=== PATIENT | female | born 1935 | race Caucasian/White ===

== ENCOUNTER → 2016-12-29 | Outpatient (CLI) | payer MEDICARE ==
[~2016-12-29] MED LIST: ASPI-515 PO; ATOR40TA PO; CLOP75TA22 PO; DICL75TA2 PO; DOCU50CA3 PO; METO25TA91 PO; MULT-658 PO; REGADENOSON 0.4 MG/5 ML SYRINGE ONE; ROPI1TAB PO; TICA90TA PO; [UNRECOGNIZED DRUG - OTHER] PO
[2016-12-29 12:38] LABS: BLOOD UREA NITROGEN 25 mg/dL (7-18)
[2016-12-29 12:45] LABS: ASPARTATE AMINO TRANSFERASE 22 U/L (15-37)
== END | disposition home or self-care (01) ==
LOC: CFH 08:12
PROVIDERS: ATTEND Physician Assistant Medical
DX: I25.10 Atherosclerotic heart disease of native coronary artery without angina pectoris (principal); I10 Essential (primary) hypertension
CPT/HCPCS: 36415; 78452; 80053; 80061; 83880; 93017; A9502; J2785

== ENCOUNTER → 2018-09-14 | Outpatient (CLI) | payer MEDICARE ==
[~2018-09-14] MED LIST changes: -CLOP75TA22 PO; +CLOP75TA52 PO; -DICL75TA2 PO; +DICL75TA3 PO; -REGADENOSON 0.4 MG/5 ML SYRINGE ONE
== END | disposition home or self-care (01) ==
LOC: CVU 14:59
PROVIDERS: ATTEND Internal Medicine Cardiovascular Disease
DX: I08.8 Other rheumatic multiple valve diseases (principal); Z95.818 Presence of other cardiac implants and grafts; Z86.73 Personal history of transient ischemic attack (TIA), and cerebral infarction without residual deficits
CPT/HCPCS: 93306

== ENCOUNTER → 2018-09-28 | Outpatient (CLI) | payer MEDICARE ==
[~2018-09-28] MED LIST changes: +REGADENOSON 0.4 MG/5 ML SYRINGE ONE
== END | disposition home or self-care (01) ==
LOC: CFH 08:35
PROVIDERS: ATTEND Internal Medicine Cardiovascular Disease
DX: I35.1 Nonrheumatic aortic (valve) insufficiency (principal); R07.9 Chest pain, unspecified
CPT/HCPCS: 78452; 93017; A9502; J2785

== ENCOUNTER → 2020-07-26 | Outpatient (CLI) | payer MEDICARE ==
[~2020-07-26] MED LIST changes: -ASPI-515 PO; +ASPI-963 PO; -REGADENOSON 0.4 MG/5 ML SYRINGE ONE
== END | disposition home or self-care (01) ==
LOC: CFH 12:59
PROVIDERS: ATTEND Internal Medicine Cardiovascular Disease
DX: I08.8 Other rheumatic multiple valve diseases (principal); Z86.73 Personal history of transient ischemic attack (TIA), and cerebral infarction without residual deficits
CPT/HCPCS: 93306